=== PATIENT | male | born 1955 | race Caucasian/White ===

== ENCOUNTER 2023-06-23 14:21 | Emergency (ER) | payer OTHER ==
[2023-06-23 14:45] VITALS: BP 152/96; PULSE 90; RESP 18; TEMP 97.7; BMI 34.2
[2023-06-23 16:28] LABS: HEMOGLOBIN 15.2 G/dL (11.7-16.9); MCH 28.8 pg (25.7-33.7); MCHC 33.8 g/dl (32.0-35.9); MEAN PLT VOLUME 7.2 fl (7.5-11.1); PLATELET COUNT 203.6 10^3/uL (134-434); RBC 5.29 10^6/uL (4.00-5.60); RDW 14.2 % (11.9-15.9); WHITE BLOOD COUNT 8.2 10^3/uL (4.0-10.8)
[2023-06-23 16:36] LABS: INR 1.08 (0.83-1.09); PROTHROMBIN TIME (PATIENT) 12.5 SEC (9.7-13.0)
[2023-06-23 16:49] LABS: ALBUMIN 4.5 g/dl (3.4-5.0); BILIRUBIN,TOTAL 0.6 mg/dl (0.2-1); CALCIUM 9.4 mg/dl (8.5-10.1); CREATININE 1.3 mg/dl (0.6-1.3); POTASSIUM 4.2 mmol/L (3.5-5.1); TOT PROT 7.1 g/dl (6.4-8.2)
[2023-06-23 17:13] LABS: PLATELET ESTIMATE ADEQUATE
== END 2023-06-23 17:55 | disposition left against medical advice (07) ==
LOC: FER 14:21
DX: R10.811 Right upper quadrant abdominal tenderness (principal); R10.816 Epigastric abdominal tenderness
CPT/HCPCS: 36415; 76705-TC; 80053; 84484; 85025; 85610; 86850; 86900; 86901; 93005; 99285-25